=== PATIENT | female | born 1975 | race Two or more races ===

== ENCOUNTER 2024-11-24 19:17 | Emergency (ER) | payer MEDICAID, SELFPAY ==
[2024-11-24 19:18] VITALS: BMI 32.9
[2024-11-24 19:43] VITALS: BP 141/94; PULSE 86; RESP 16; TEMP 36.8; O2SAT 99
--- NOTE | 2024-11-24 19:51 | PD.EDABDPN ---
ED Abdominal Pain RME/HPI General Chief Complaint: Abdominal Pain Stated complaint: stomach extended cramps/constipated Time seen by provider: 11/24/24 19:49 Arrival date/time: 11/24/24 19:17 49F with history of DM and remote drug use presents to ED with several days of constipation and lower ab pain. Patient has had diverticulitis and states this feels similar. Limitations: no limitations Related Data Previous Rx's ?Medication ?Instructions ?Recorded levofloxacin 500 mg tablet 500 mg PO QDAY #10 tabs 05/21/18 (Levaquin) metronidazole 500 mg tablet 500 mg PO TID #30 tabs 05/21/18 (Flagyl) metformin 500 mg tablet 500 mg PO BIDWMEAL #60 tabs 08/28/22 diphenhydramine HCl 25 mg capsule 25 mg PO TID PRN allergy symptoms 02/22/23 (Benadryl) #20 caps ibuprofen 600 mg tablet 600 mg PO Q8H PRN fever or pain 08/29/23 #30 tabs Allergies Allergy/AdvReac Type Severity Reaction Status Date / Time No Known Allergies Allergy Verified 02/22/23 14:54 Review of Systems Review of Systems Systems Reviewed: All systems reviewed, normal except as documented Constitutional Constitutional: Reports system reviewed and no additional complaints, except as documented, Denies fever(s) and Denies headache(s) ENT Ears, Nose, Mouth, and Throat: Denies disequilibrium and Denies headache(s) Cardiovascular Cardiovascular: Reports system reviewed and no additional complaints, except as documented, Denies chest pain and Denies dyspnea Respiratory Respiratory: Reports system reviewed and no additional complaints, except as documented, Denies cough and Denies dyspnea Gastrointestinal Gastrointestinal: Reports system reviewed and no additional complaints, except as documented, Reports as per HPI, Reports abdominal pain, Reports constipation, Denies nausea and Denies vomiting Neurologic Neurologic: Reports system reviewed and no additional complaints, except as documented, Denies confusion, Denies disequilibrium and Denies headache(s) Psychiatric Psychiatric: Denies confusion Past Medical History Past Medical History CARDIAC: Positive Hypercholesterolemia; Negative Cardiac Disorders or Congestive Heart Failure RESPIRATORY: Negative Chronic Obstructive Pulmonary Disease (COPD) GENITOURINARY: Negative Renal Disease REPRODUCTIVE: Positive Previous Pregnancies ENDOCRINE: Positive Diabetes Mellitus Type 1 and Diabetes Mellitus Type 2 Social History SMOKING STATUS: Never smoker ED Exam General Limitations: Present no limitations General appearance: Present alert and in no apparent distress Head Head exam: Present atraumatic Eye Eye exam: Present normal appearance, PERRL and EOMI ENT ENT exam: Present normal exam, normal oropharynx and mucous membranes moist Neck Neck exam: Present normal inspection, full ROM and trachea midline Chest Chest inspection: Present normal inspection and symmetric chest wall rise Respiratory Respiratory exam: Present normal lung sounds bilaterally Cardiovascular Cardiovascular exam: Present regular rate, normal rhythm and normal heart sounds Abdominal Exam Abdominal exam: Present soft and normal bowel sounds Abdominal tenderness: Present RLQ and LLQ Extremities Exam Extremities exam: Present normal inspection and full ROM Back Exam Back exam: Present normal inspection and full ROM Neurological Exam Neurological exam: Present alert, oriented X3 and CN II-XII intact Psychiatric Psychiatric exam: Present normal affect and normal mood Skin Skin exam: Present warm, dry, intact and normal color Course Quality Measures none Orders Category Date Time Status CT Screening NOW Care 11/24/24 19:50 Active Insert IV NOW Care 11/24/24 19:[address] abdomen pelvis w con Stat Exams 11/24/24 19:50 Ordered CBC Stat Lab 11/24/24 20:24 Completed CMP [Comprehensive Metabolic Panel] Stat Lab 11/24/24 20:24 Completed Drug Screen,Urine Stat Lab 11/24/24 19:50 Ordered HCG Qualitative,Urine Stat Lab 11/24/24 19:50 Ordered Lipase Stat Lab 11/24/24 20:24 Completed Urinalysis, C/S if Indicated Stat Lab 11/24/24 19:50 Ordered Vital Signs Vital signs: Vital Signs Temperature 98.2 F 11/24/24 19:43 Pulse Rate 86 11/24/24 19:43 Respiratory Rate 16 11/24/24 19:43 Blood Pressure 141/94 H 11/24/24 19:43 Pulse Oximetry (%) 99 11/24/24 19:43 O2 at 99% on RA and WNLs Abdominal Pain MDM MDM Narrative MDM Narrative:: 49F with history of DM and remote drug use presents to ED with several days of constipation and lower ab pain. Patient has had diverticulitis and states this feels similar. Physical exam reveals RLQ and LLQ tenderness. Patient is afebrile, calm, and alert. Patient eloped. Patient data External records reviewed:: [facility] previous records Clinical information provided by:: patient Social determinants that could affect healthcare access:: substance use Patient has the following chronic illnesses:: DM and drug use How is presenting disease/condition affected by chronic disease/condition?: exacerbated by Evaluation data The following diagnostics were reviewed and interpreted by me:: lab results and radiology exam(s) Lab and/or radiology exams considered but not ordered:: ordered Interpretation Summary: above Medications / Prescriptions Medications or Prescriptions considered but not ordered:: not ordered Medication administrations:: n/a Consultations Consultation(s) initiated? (list below): No Diagnosis Differential diagnosis abdominal pain: abdominal pain, acute appendicitis, calculus of kidney, constipation, diverticulitis, endometriosis, gastroenteritis, pancreatitis and small bowel obstruction Most likely diagnosis given after review of the tests above:: ab pain Admission Indicated Admission indicated?: not indicated Admission Request Was there a request for admission?: No Disposition Plan Disposition Plan: other (specify) (eloped) Discharge Plan Plan Discharge Disposition comment: pt walked out of ed lobby at this time Prescriptions/Referrals Prescriptions/Med Rec: No Action metronidazole [Flagyl] 500 mg tablet 500 mg PO TID Qty: 30 0RF levofloxacin [Levaquin] 500 mg tablet 500 mg PO QDAY Qty: 10 0RF metformin 500 mg tablet 500 mg PO BIDWMEAL Qty: 60 0RF diphenhydramine HCl [Benadryl] 25 mg capsule 25 mg PO TID PRN (Reason: allergy symptoms) Qty: 20 0RF ibuprofen 600 mg tablet 600 mg PO Q8H PRN (Reason: fever or pain) Qty: 30 0RF Referrals: No Primary/Family,Physician [Primary Care Provider] - In 1 week Problem List Clinical Impression: Abdominal pain Patient/Caregiver Discharge Instructions Print Language: Armenian 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 Walsh
[2024-11-24 20:39] LABS: Basophils # (Auto) 0.1 Thou/mm3 (0.0-0.2); Basophils % (Auto) 0 % (0-2.5); Eosinophils # (Auto) 0.3 Thou/mm3 (0.0-0.5); Eosinophils % (Auto) 3 % (0-10); Hematocrit 43.6 % (36.0-46.0); Hemoglobin 14.2 g/dL (12.0-16.0); Immature Granulocytes Auto 0.05 Thou/mm3 (0.00-0.00); Lymphocytes # (Auto) 2.4 Thou/mm3 (1.0-4.8); Lymphocytes % (Auto) 21 % (10-50); Mean Corpuscular HGB Conc 32.6 g/dl (31.0-37.0); Mean Corpuscular Hemoglobin 28.6 pg (25.0-35.0); Mean Corpuscular Volume 88 fL (80-100); Monocytes # (Auto) 1.2 Thou/mm3 (0.0-0.8); Monocytes % (Auto) 11 % (0-12); Neutrophils # (Auto) 7.6 Thou/mm3 (1.8-7.7); Neutrophils % (Auto) 66 % (37-80); Nucleated Red Blood Cell # 0.00 Thou/mm3 (0.00-0.00); Nucleated Red Blood Cell % 0 /100 WBC (0); Platelet Count 344 Thou/mm3 (140-440); RDW Standard Deviation 43.2 fL (36.4-46.3); Red Blood Count 4.96 Miln/mm3 (4.00-5.20); White Blood Count 11.7 Thou/mm3 (3.6-11.0)
[2024-11-24 20:57] LABS: Alanine Aminotransferase 30 U/L (10-49); Albumin, Serum 4.8 gm/dL (3.5-5.0); Albumin/Globulin Ratio 1.9 (1.2-2.2); Alkaline Phosphatase 116 U/L (46-116); Anion Gap 12 (7-16); Aspartate Amino Transferase 23 U/L (0-34); BUN/Creatinine Ratio 23 Ratio (12-20); Bilirubin,Total 1.2 mg/dL (0.3-1.2); Blood Urea Nitrogen 16 mg/dL (9-23); Calcium 10.2 mg/dL (8.3-10.6); Calcium (Corrected) 10.2 mg/dL (8.5-10.1); Carbon Dioxide 25.4 mMol/L (20.0-31.0); Chloride 103 mMol/L (98-107); Creatinine (Component) 0.7 mg/dL (0.6-1.3); Estimated Creatinine Clearance 101.6 mL/min (>60); Globulin 2.5 gm/dL (2.3-3.5); Glucose 116 mg/dL (74-106); Lipase 34 U/L (12-53); Osmolality,Calculated 281 (275-295); Potassium 4.0 mMol/L (3.4-5.1); Sodium 140 mMol/L (136-145); Total Protein 7.3 gm/dL (5.7-8.2); eGFR > 60 See Note
== END 2024-11-24 22:10 | disposition left against medical advice (07) ==
PROVIDERS: Physician Assistant; Emergency Provider Emergency Medicine
DX: K59.00 Constipation, unspecified (principal); E11.9 Type 2 diabetes mellitus without complications; Z87.19 Personal history of other diseases of the digestive system
CPT/HCPCS: 36415; 80053; 80307; 81001; 81025; 83690; 85025; 99283

== ENCOUNTER 2024-12-06 17:04 | Emergency (ER) | payer MEDICAID, SELFPAY ==
[2024-12-06 17:06] VITALS: BMI 34.3
--- NOTE | 2024-12-06 17:30 | XR_ITS ---
Examination: CT abdomen and pelvis without contrast. Coronal 3-D reconstructions. Sagittal 2-D reconstructions. Date and time of exam:December 06, 2024 1849 hrs., Comparison March 20, 2019 Indications: Right-sided flank pain radiating to lower back beginning one week ago, history acute sigmoid diverticulitis CTDI: vol (mGy): 9.45. DLP: (mGycm): 532. Technique: Axial images of the abdomen have been obtained, 3 mm slice thickness Intravenous contrast material has not been administered. Low dose protocols were performed. One or more of the following dose reduction techniques were used; automated exposure control, adjustment of the mA and/or KV according to patient size, use of iterative reconstruction technique. Findings: Liver is mildly irregular in contour, no focal liver lesions, hepatomegaly 19 cm Cholelithiasis, gallbladder wall appears mildly thickened. No pancreatic or adrenal mass Spleen is not enlarged. No renal or ureteral calculi, no hydronephrosis Normal appendix Aorta is normal in size. No bowel obstruction. Colonic diverticulosis, no diverticulitis. Atrophic uterus Contracted urinary bladder. Grade 1 spondylolisthesis L5 on S1. Impression: Hepatomegaly, 19 cm, suspicious for primary hepatocellular disease Cholelithiasis, recommend hepatobiliary sonography follow-up to exclude gallbladder wall thickening. No renal or ureteral calculi, no hydronephrosis. Normal appendix. No bowel obstruction Colonic diverticulosis, no diverticulitis.
--- NOTE | 2024-12-06 17:30 | PD.EDRME ---
Rapid Medical Screening Exam RME Arrival date/time: 12/06/24 17:04 49-year-old female with a history of type 2 diabetes presents to the emergency room with a chief complaint of right-sided flank pain x 1 week I have greeted and performed a focused initial assessment of this patient. A comprehensive ED assessment and evaluation of the patient, analysis of all test results, and completion of the medical decision making process will be conducted by additional ED providers. Chief Complaint: Abdominal Pain Time Seen by Provider: 12/06/24 17:10 Vital signs reviewed by provider: Yes
[2024-12-06 17:31] VITALS: BP 128/84; PULSE 77; RESP 20; TEMP 36.6; O2SAT 96
[2024-12-06] MEDS: KETOROLAC INJ 60 MG/2 ML VIAL 30 MG IM (17:51)
[2024-12-06 17:53] LABS: Basophils # (Auto) 0.1 Thou/mm3 (0.0-0.2); Basophils % (Auto) 1 % (0-2.5); Eosinophils # (Auto) 0.3 Thou/mm3 (0.0-0.5); Eosinophils % (Auto) 3 % (0-10); Hematocrit 43.7 % (36.0-46.0); Hemoglobin 14.2 g/dL (12.0-16.0); Immature Granulocytes Auto 0.07 Thou/mm3 (0.00-0.00); Lymphocytes # (Auto) 2.3 Thou/mm3 (1.0-4.8); Lymphocytes % (Auto) 22 % (10-50); Mean Corpuscular HGB Conc 32.5 g/dl (31.0-37.0); Mean Corpuscular Hemoglobin 28.4 pg (25.0-35.0); Mean Corpuscular Volume 87 fL (80-100); Monocytes # (Auto) 0.5 Thou/mm3 (0.0-0.8); Monocytes % (Auto) 5 % (0-12); Neutrophils # (Auto) 7.2 Thou/mm3 (1.8-7.7); Neutrophils % (Auto) 69 % (37-80); Nucleated Red Blood Cell # 0.00 Thou/mm3 (0.00-0.00); Nucleated Red Blood Cell % 0 /100 WBC (0); Platelet Count 387 Thou/mm3 (140-440); RDW Standard Deviation 42.3 fL (36.4-46.3); Red Blood Count 5.00 Miln/mm3 (4.00-5.20); White Blood Count 10.5 Thou/mm3 (3.6-11.0)
[2024-12-06 18:08] LABS: Alanine Aminotransferase 38 U/L (10-49); Albumin, Serum 4.6 gm/dL (3.5-5.0); Albumin/Globulin Ratio 2.0 (1.2-2.2); Alkaline Phosphatase 100 U/L (46-116); Anion Gap 13 (7-16); Aspartate Amino Transferase 21 U/L (0-34); BUN/Creatinine Ratio 24 Ratio (12-20); Bilirubin,Total 0.9 mg/dL (0.3-1.2); Blood Urea Nitrogen 17 mg/dL (9-23); Calcium 10.0 mg/dL (8.3-10.6); Calcium (Corrected) 10.0 mg/dL (8.5-10.1); Carbon Dioxide 25.5 mMol/L (20.0-31.0); Chloride 104 mMol/L (98-107); Creatinine (Component) 0.7 mg/dL (0.6-1.3); Estimated Creatinine Clearance 103.7 mL/min (>60); Globulin 2.3 gm/dL (2.3-3.5); Glucose 169 mg/dL (74-106); Lipase 38 U/L (12-53); Osmolality,Calculated 288 (275-295); Potassium 3.8 mMol/L (3.4-5.1); Sodium 142 mMol/L (136-145); Total Protein 6.9 gm/dL (5.7-8.2); eGFR > 60 See Note
[2024-12-06 18:21] LABS: Collection Type, Urine Clean Catch
[2024-12-06 18:28] LABS: Bilirubin,Urine Negative (Negative); Blood,Urine Negative (Negative); Clarity,Urine Clear (Clear/Hazy); Color,Urine Yellow (Lt Yel-Yel); Glucose, Urine Negative (Negative); Ketones,Urine Negative (Negative); Leukocyte Esterase,Urine Negative (Negative); Nitrite,Urine Negative (Negative); PH,Urine 6.0 (5.0-7.0); Protein,Urine 1+ (Neg - Trace); RBC,Urine 3 /hpf (0-3); Specific Gravity,Urine 1.040 (1.001-1.035); Squamous Epithelial Cell,Urine 1 /hpf (0-5); Urobilinogen,Urine 2.0 mg/dL (0.0-1.0); WBC,Urine 1 /hpf (0-5)
[2024-12-06 18:37] LABS: HCG Qualitative,Urine Negative
--- NOTE | 2024-12-06 19:38 | EDNOTE_ITS ---
ED Abdominal Pain RME/HPI General Chief Complaint: Abdominal Pain Stated complaint: RIGHT FLANK PAIN FOR 5 DAYS Time seen by provider: 12/06/24 17:10 Arrival date/time: 12/06/24 17:04 RME / HPI RME / HPI narrative: 12/06/24 17:04 49-year-old female with a history of type 2 diabetes presents to the emergency room with a chief complaint of right-sided flank pain x 1 week I have greeted and performed a focused initial assessment of this patient. A comprehensive ED assessment and evaluation of the patient, analysis of all test results, and completion of the medical decision making process will be conducted by additional ED providers. See [facility] for Dr. Walsh's HPI Documentation. Related Data Previous Rx's ?Medication ?Instructions ?Recorded levofloxacin 500 mg tablet 500 mg PO QDAY #10 tabs (Levaquin) metronidazole 500 mg tablet 500 mg PO TID #30 tabs (Flagyl) metformin 500 mg tablet 500 mg PO BIDWMEAL #60 tabs 08/28/22 diphenhydramine HCl 25 mg capsule 25 mg PO TID PRN all ergy symptoms 02/22/23 (Benadryl) #20 caps ibuprofen 600 mg tablet 600 mg PO Q8H PRN fever or p ain 08/29/23 #30 tabs acetaminophen 300 mg-codeine 30 mg 2 tab PO Q8H PRN pa in #20 tabs 12/06/24 tablet ibuprofen 800 mg tablet 800 mg PO Q8H PRN pain #30 t abs 12/06/24 ondansetron 4 mg disintegrating 4 mg PO TID PRN nausea and 12/06/24 tablet vomiting 30 days #10 tabs Allergies Allergy/AdvReac Type Severity Reaction Status Date / Time No Known Allergies Allergy Verified 12/06/24 17:08 Review of Systems Review of Systems Systems Reviewed: All systems reviewed, normal except as documented Past Medical History Past Medical History CARDIAC: Positive Hypercholesterolemia REPRODUCTIVE: Positive Previous Pregnancies ENDOCRINE: Positive Diabetes Mellitus Type 1 and Diabetes Mellitus Type 2 ED Exam Narrative Physical exam: See [facility] for Dr. Walsh's Physical Exam Documentation. Course Quality Measures none Orders Category Date Time Status CT abdomen pelvis wo con Stat Exams 12/06/24 17:30 Completed CBC Stat Lab 12/06/24 17:36 Completed CMP [Comprehensive Metabolic Panel] Stat Lab 12/06/24 17:36 Completed HCG Qualitative,Urine Stat Lab 12/06/24 17:45 Completed Lipase Stat Lab 12/06/24 17:36 Completed UA [Urinalysis] Stat Lab 12/06/24 17:45 Completed Urine Culture Stat Lab 12/06/24 17:45 Received Ketorolac Inj [Toradol Inj] Med 12/06/24 17:30 Discontinued 30 mg IM X1 ONE Vital Signs Vital signs: Vital Signs Temperature 98 F 12/06/24 17:31 Pulse Rate 77 12/06/24 17:31 Respiratory Rate 20 12/06/24 17:31 Blood Pressure 128/84 12/06/24 17:31 Pulse Oximetry (%) 96 12/06/24 17:31 Oxygen Delivery Method Room Air 12/06/24 17:31 Abdominal Pain MDM MDM Narrative MDM Narrative:: Scribe Attestation: I, Ramona Ocampo, am scribing for and in the presence of Dr. Walsh. Provider Notation: Although this document has been carefully reviewed, there may still be some phonetic and other typographical errors. These errors are purely grammatical due to imperfections in the software program and should not be construed in any way to compromise the substance of the patient's medical care during this visit. This section includes all my notes and documentations, including HPI, PE, and ED course. Gui Walsh MD HPI: 49 y/o female presents with rght-side abdominal pain for several days. With nausea and decreased oral intake. No other complaints. ROS: All negative except as documented in HPI. Physical Exam: General: Alert and oriented. No acute distress when remaining still. Eyes: Conjunctivae and lids clear. ENT: No nasal congestion. Neck: Supple. Heart: RRR. Lungs: No respiratory distress. Good air movement. No rhonchi, wheezing, rales. Abdomen: Soft with RUQ. Normal bowel sounds. No distension. No rebound or guarding. Back: No CVA tenderness. Skin: Warm and dry. Neuro: Alert and oriented X 3. I reviewed all diagnostic test results: My review of the CT report is cholelithiasis. Blood tests and urine tests are unremarkable, including WBC 10.5. At this point, diagnoses include: Gallstones. Recommended outpatient care. Based on my best medical judgment, made decision no further evaluation or treatment indicated at this time. Patient understands and agrees to the discharge instructions customized and printed, see below. Discharge Instructions from Dr. Walsh: 1. CT scan shows you have gallstone(s).? You need gallbladder to help digest fatty foods. See attached handout. 2. So to prevent future attacks, avoid all fatty and oily and greasy and buttery and dairy foods.? This usually means take out and fast food restaurants. 3. Zofran for nausea/vomiting.? Tylenol with codeine and/or ibuprofen for severe pain.? Clear liquid diet for 24 hours then advance diet slowly as tolerated. 4. See a private doctor on 12/07/2024 for recheck and further care. Ask to review all test results and official radiology reports, to make sure you receive all necessary follow-ups and monitoring. Ask for help getting ultrasound of the gallbladder and MRI of your back that is making it hard to walk. Ask for help seeing a general surgeon to discuss elective surgery. 5. Seek immediate medical care with intolerable pain, fever, or with any concerns. Gui Walsh MD Patient data External records reviewed:: [facility] previous records (Reviewed prior ED records from 08/29/23. Patient was seen for Acute costochondritis.) Clinical information provided by:: patient Social determinants that could affect healthcare access:: none Patient has the following chronic illnesses:: Hypercholesterolemia, Diabetes Mellitus Type 2 How is presenting disease/condition affected by chronic disease/condition?: exacerbated by Evaluation data The following diagnostics were reviewed and interpreted by me:: lab results and radiology exam(s) Lab and/or radiology exams considered but not ordered:: None Interpretation Summary: I reviewed all diagnostic test results: My review of the CT report is cholelithiasis. Blood tests and urine tests are unremarkable, including WBC 10.5. Medications / Prescriptions Medications or Prescriptions considered but not ordered:: None Medication administrations:: Medication Administration History Discontinued Medications Ketorolac Tromethamine (Ketorolac Inj 60 Mg/2 Ml Vial) 30 mg IM X1 ONE Stop: 12/06/24 17:31 Last Admin: 12/06/24 17:51 Dose: 30 mg Documented By: No treatment from al. Consultations Consultation(s) initiated? (list below): No Diagnosis Differential diagnosis abdominal pain: abdominal pain, acute appendicitis, calculus of kidney, constipation, diverticulitis, gastroenteritis, pancreatitis and small bowel obstruction Most likely diagnosis given after review of the tests above:: Gallstones Admission Indicated Admission indicated?: not indicated Explain why admission is indicated or not indicated:: With no condition needing emergent intervention, there was no indication for admission. Admission Request Was there a request for admission?: No Disposition Plan Disposition Plan: Discharge Discharge Attestation Discharge Attestation: The patient and all family members were given an opportunity to ask questions and understood the discharge instructions. Discharge instructions specifically effects, indications for sooner follow up or return to the emergency department, and the expected course of current diagnosis. Patient condition: Stable Discharge Plan Plan Patient Disposition: HOME (Self Care) Prescriptions/Referrals Prescriptions/Med Rec: New ibuprofen 800 mg tablet 800 mg PO Q8H PRN (Reason: pain) Qty: 30 0RF acetaminophen-codeine 300-30 mg tablet 2 tab PO Q8H MDD 6 PRN (Reason: pain) Qty: 20 0RF ondansetron 4 mg tablet,disintegrating 4 mg PO TID PRN (Reason: nausea and vomiting) 30 Days Qty: 10 0RF No Action metronidazole [Flagyl] 500 mg tablet 500 mg PO TID Qty: 30 0RF levofloxacin [Levaquin] 500 mg tablet 500 mg PO QDAY Qty: 10 0RF metformin 500 mg tablet 500 mg PO BIDWMEAL Qty: 60 0RF diphenhydramine HCl [Benadryl] 25 mg capsule 25 mg PO TID PRN (Reason: allergy symptoms) Qty: 20 0RF ibuprofen 600 mg tablet 600 mg PO Q8H PRN (Reason: fever or pain) Qty: 30 0RF Referrals: No Primary/Family,Physician [Primary Care Provider] - In 1 week Problem List Clinical Impression: Gallstones Patient/Caregiver Discharge Instructions Discharge Activity: activity as tolerated Education Materials: ED Gallstones with Biliary Colic Additional Instructions: Discharge Instructions from Dr. Walsh: 1. CT scan shows you have gallstone(s).? You need gallbladder to help digest fatty foods. See attached handout. 2. So to prevent future attacks, avoid all fatty and oily and greasy and buttery and dairy foods.? This usually means take out and fast food restaurants. 3. Zofran for nausea/vomiting.? Tylenol with codeine and/or ibuprofen for severe pain.? Clear liquid diet for 24 hours then advance diet slowly as tolerated. 4. See a private doctor on 12/07/2024 for recheck and further care. Ask to review all test results and official radiology reports, to make sure you receive all necessary follow-ups and monitoring. Ask for help getting ultrasound of the gallbladder and MRI of your back that is making it hard to walk. Ask for help seeing a general surgeon to discuss elective surgery. 5. Seek immediate medical care with intolerable pain, fever, or with any concerns. Print Language: Ugandan Stand Alone Forms: [employer] Award Info., Work/School Release, Patient Portal Info Letter
== END 2024-12-06 19:46 | disposition home or self-care (01) ==
PROVIDERS: Nurse Practitioner Family; Emergency Provider Emergency Medicine
DX: K80.20 Calculus of gallbladder without cholecystitis without obstruction (principal)
CPT/HCPCS: 36415; 74176; 80053; 81001; 81025; 83690; 85025; 87086; 96372; 99283; J1885